=== PATIENT | female | born 1960 | race Caucasian/White ===

== ENCOUNTER → 2016-07-13 | Outpatient (CLI) | payer BC ==
--- NOTE | 2016-07-13 16:43 | MAMMOGRAPHY REPORT ---
BILATERAL DIGITAL SCREENING MAMMOGRAM TOMOSYNTHESIS WITH CAD: 07/13/2016 CLINICAL HISTORY: Routine screening. Patient has no complaints. TECHNIQUE: Breast tomosynthesis in addition to standard 2D mammography was performed. Current study was also evaluated with a Computer Aided Detection (CAD) system. COMPARISON: Comparison is made to exams dated: 06/08/2015 mammogram, 05/26/2014 mammogram, 03/19/2013 mammogram, 02/12/2012 mammogram, 02/08/2011 mammogram, and 05/26/2009 mammogram - [facility]. BREAST COMPOSITION: There are scattered areas of fibroglandular density in both breasts. FINDINGS: No suspicious masses, calcifications, or areas of architectural distortion are noted in e ither breast. There has been no significant interval change compared to prior exams. IMPRESSION: ACR BI-RADS CATEGORY 1: NEGATIVE There is no mammographic evidence of malignancy. A 1 year screening mammogram is recommended. The p atient will receive written notification of the results. Approximately 10% of breast cancers are not detected with mammography. A negative mammographic repor t should not delay biopsy if a clinically suggestive mass is present. Chantel Byrne M.D. ah/:07/13/2016 15:11:07 Linen Grader: Ryanne PADRON(Olaf)(Maria)(BD), [facility] letter sent: Normal 1/2 BI-RADS Code: ACR BI-RADS Category 1: Negative
== END | disposition home or self-care (01) ==
LOC: C.MAMM 13:54
DX: Z12.31 Encounter for screening mammogram for malignant neoplasm of breast (principal)

== ENCOUNTER → 2017-10-03 | Outpatient (CLI) | payer OTHER ==
--- NOTE | 2017-10-03 15:34 | MAMMOGRAPHY REPORT ---
BILATERAL DIGITAL SCREENING MAMMOGRAM TOMOSYNTHESIS WITH CAD: 10/03/2017 CLINICAL HISTORY: Routine screening. Patient has no complaints. TECHNIQUE: Breast tomosynthesis in addition to standard 2D mammography was performed. Current study was also evaluated with a Computer Aided Detection (CAD) system. COMPARISON: Comparison is made to exams dated: 07/13/2016 mammogram, 06/08/2015 mammogram, 05/26/2014 ma mmogram, 03/19/2013 mammogram, 02/12/2012 mammogram, and 02/08/2011 mammogram - [facility]. BREAST COMPOSITION: There are scattered areas of fibroglandular density in both breasts. FINDINGS: No suspicious masses, calcifications, or areas of architectural distortion are noted in ei ther breast. There has been no significant interval change compared to prior exams. IMPRESSION: ACR BI-RADS CATEGORY 1: NEGATIVE There is no mammographic evidence of malignancy. A 1 year screening mammogram is recommended. The pa tient will receive written notification of the results. Approximately 10% of breast cancers are not detected with mammography. A negative mammographic report should not delay biopsy if a clinically suggestive mass is present. Chantel Byrne M.D. ah/:10/03/2017 13:41:41 Hat Block Maker: Heidi PADRON(Olaf)(Maria), [facility] letter sent: Normal 1/2 BI-RADS Code: ACR BI-RADS Category 1: Negative
== END | disposition home or self-care (01) ==
LOC: C.MAMM 11:06
DX: Z12.31 Encounter for screening mammogram for malignant neoplasm of breast (principal)

== ENCOUNTER 2023-07-26 05:14 | Observation (INO) ==
--- NOTE | 2023-06-17 09:21 | PAT Medication Instructions ---
Medication Instructions Date of Service June 17, 2023 Home Medications biotin 1 mg tablet 1 mg PO QAM calcium 600 mg capsule 600 mg PO QAM cholecalciferol (vitamin D3) 25 mcg (1,000 unit) tablet (Vitamin D3) 25 mcg PO QAM diphenhydramine 25 mg-acetaminophen 500 mg tablet (Tylenol PM Extra Strength) 1 tab PO HS PRN ibuprofen 200 mg tablet 200 mg PO Q6H PRN levothyroxine 50 mcg tablet 50 mcg PO QPM naproxen sodium 220 mg tablet (Aleve) 220 mg PO Q12H PRN rosuvastatin 10 mg tablet 10 mg PO QPM sertraline 100 mg tablet 200 mg PO QPM vitamin B complex 1 cap PO QAM ASK your surgeon for instructions ibuprofen 200 mg tablet 200 mg PO Q6H PRN naproxen sodium 220 mg tablet (Aleve) 220 mg PO Q12H PRN STOP taking 2 weeks before surgery (or as soon as possible if surgery is within 2 weeks) biotin 1 mg tablet 1 mg PO QAM DO NOT take the morning of surgery calcium 600 mg capsule 600 mg PO QAM cholecalciferol (vitamin D3) 25 mcg (1,000 unit) tablet (Vitamin D3) 25 mcg PO QAM vitamin B complex 1 cap PO QAM Take evening before surgery diphenhydramine 25 mg-acetaminophen 500 mg tablet (Tylenol PM Extra Strength) 1 tab PO HS PRN(if needed) levothyroxine 50 mcg tablet 50 mcg PO QPM rosuvastatin 10 mg tablet 10 mg PO QPM sertraline 100 mg tablet 200 mg PO QPM Other Notes NOTHING TO EAT OR DRINK AFTER MIDNIGHT. If you have any questions please call us at [phone] or [phone] or [phone] or [phone]
--- NOTE | 2023-06-20 11:05 | Anesthesiology Consultation ---
Date of Service June 20, 2023 Assessment & Plan (1) Encounter for pre-operative examination: Chart Review Chart Review: Acceptable Risk for Surgery and Patient seen in Pre Admission Testing - Patient NOT an ideal OPJ candidate due to functional status (currently 23 hour observation) Per PAT appt on 06/20/23, no recent illness/disease exposures, illness related symptoms, or recent illness/disease positive tests. Will leave to surgeon's discretion if preop Covid testing needed Teaching & Discussion Pre-Anesthesia Teaching/Discussion Notes: Instructed NPO after midnight before s urgery,except medications with 15 cc of water. Medication instructions provided according to the PAT guidelines. History Surgery Operation Date: 07/26/23 11:00 Proposed Procedures p Right Total Hip Arthroplasty Anterior - Raza Florian, Height/Weight Height: 5 ft 7.5 in Weight: 116 kg Allergies Allergy/AdvReac Type Severity Reaction Status Date / Time Sulfa (Sulfonamide Allergy Hives Verified 06/14/23 13:49 Antibiotics) metformin Allergy Mild Hives Uncoded 06/14/23 13:49 Medications Home Medications Medication Instructions Recorded Confirmed Last Taken biotin 1 mg tablet 1 mg PO QAM 06/14/23 06/14/23 Unknown calcium 600 mg capsule 600 mg PO QAM 06/14/23 06/14/23 Unknown cholecalciferol (vitamin D3) 25 25 mcg PO QAM 06/14/23 06/14/23 Unknown mcg (1,000 unit) tablet (Vitamin D3) diphenhydramine 25 1 tab PO HS PRN Sleep 06/14/23 06/14/23 Unknown mg-acetaminophen 500 mg tablet (Tylenol PM Extra Strength) ibuprofen 200 mg tablet 200 mg PO Q6H PRN Pain 06/14/23 06/14/23 Unknown levothyroxine 50 mcg tablet 50 mcg PO QPM 06/14/23 06/14/23 Unknown naproxen sodium 220 mg tablet 220 mg PO Q12H PRN Pain 06/14/23 06/14/23 Unknown (Aleve) rosuvastatin 10 mg tablet 10 mg PO QPM 06/14/23 06/14/23 Unknown sertraline 100 mg tablet 200 mg PO QPM 06/14/23 06/14/23 Unknown vitamin B complex 1 cap PO QAM 06/14/23 06/14/23 Unknown Past Medical History Medical History Anxiety and depression History of TMJ disorder Remote history No clicking or locking Hyperlipidemia Hypothyroidism Lichen planus Obstructive sleep apnea CPAP Osteoarthritis Prediabetes Exercise / Class Metabolic Activity III < 4 Walking/Shop/Light housework (no chest pain or SOB with flat surface am bulation- uses cane for ambulation ) Past Family History Family History Aunt Breast cancer Mother Colorectal cancer Liver mass Father , age 77 Myocardial infarction Arrhythmia Son Multiple sclerosis Denies family history of Ovarian cancer Prostate cancer Uterine cancer Past Surgical History Surgical History History of colonoscopy History of tonsillectomy S/P dilation and curettage D&E S/P excision of lipoma L thigh Past Anesthesia History No Hx of Anesthesia Complications and No Family Hx of Anesthesia Complications History of PONV No Hx of PONV and Hx of Motion Sickness Social History Smoking Status: Former smoker Do You Dip or Chew Tobacco: No Smoking End Date: 2020 Hx Alcohol Use: Yes Alcohol type: wine alcohol intake frequency: holidays/special occasions only Hx Substance Use: No substance use type: does not use Review of Systems Patient denies chest pain, shortness of breath, dyspnea on exertion, reflux, cough, wheezing, palpitations. No hx of seizures, stroke, [place]. No hx of blood clots or blood transfusions Physical Exam Vital Signs VITALS BP 122/62 P 77 TEMP 98.0 SP02 95% RESP Constitutional no acute distress ENMT Mouth: no TMJ clicking Thyromental Distance: > or= 3.5 Finger Breadths (3.5) Mallampati Class: III Missing molars and side teeth [place] to molars Neck + limited neck extension Respiratory normal respiratory effort; no respiratory distress Auscultation: lungs clear to auscultation bilaterally; no wheezes Cardiovascular Rate/Rhythm: regular rate and regular rhythm Heart Sounds: no murmur Vessels: no carotid bruit Musculoskeletal Spine: no pain with cervical ROM Extremities: extremities normal to inspection Psychiatric Orientation: alert Lab Results Anesthesia Preop Results Results Anesthesia Widget: WBC 4.12 K/ul (4.8-10.8) L 06/20/23 Hgb 12.9 g/dl (12.0-16.0) 06/20/23 Hct 39.2 % (37.0-47.0) 06/20/23 Plt 165 K/uL (130-400) 06/20/23 Na 141 mmol/L (136-145) 06/20/23 K 4.2 mmol/L (3.5-5.1) 06/20/23 Cl 107 mmol/L (98-107) 06/20/23 CO2 29 mmol/L (21-32) 06/20/23 BUN 15 mg/dl (6-23) 06/20/23 Creat 0.88 mg/dl (0.6-1.2) 06/20/23 Glucose Level 93 mg/dl (70-99(Fasting)) 06/20/23 PT 10.6 Seconds (9.0-12.0) 06/20/23 PTT 27 Seconds (21-31) 06/20/23 INR 1.0 (0.9-1.1) 06/20/23 HA1c 5.9 % (4.5-5.6) H 06/20/23 Blood Type A Negative 06/20/23 Antibody Screen NEGATIVE 06/20/23 Testing Electrocardiogram Date: 06/20/23 Findings: + NSR @ (74bpm) Normal EKG per cardio Chest X-Ray Date: 06/20/23 Findings: + NAD
--- NOTE | 2023-07-24 07:58 | History & Physical Report ---
Date of Service July 24, 2023 Assessment & Plan (1) Osteoarthritis of right hip: We will proceed with a right anterior total of arthroplasty. Postoperatively she will be started on aspirin for DVT prophylaxis and kept overnight in the hospital for postop medical management. She plans to use energy physical t herapy upon discharge. History of Present Illness Chief Complaint: Osteoarthritis of the right hip. Primary Care Provider: Padmini Whitlock DO Stephania is a pleasant 63-year-old female who has been dealing with chronic increasing right hip and groin pain. X-rays and clinical examination have been diagnostic for advanced arthritis of the right hip. She has been failing conservative treatment including injections. She has elected proceed with a right anterior total of arthroplasty. Allergies Allergy/AdvReac Type Severity Reaction Status Date / Time Sulfa (Sulfonamide Allergy Hives Verified 06/14/23 13:49 Antibiotics) metformin Allergy Mild Hives Uncoded 06/14/23 13:49 Home Medications Medication Instructions Recorded Confirmed Type biotin 1 mg tablet 1 mg PO QAM 06/14/23 06/14/23 History calcium 600 mg capsule 600 mg PO QAM 06/14/23 06/14/23 History cholecalciferol (vitamin D3) 25 25 mcg PO QAM 06/14/23 06/14/23 History mcg (1,000 unit) tablet (Vitamin D3) diphenhydramine 25 1 tab PO HS PRN Sleep 06/14/23 06/14/23 History mg-acetaminophen 500 mg tablet (Tylenol PM Extra Strength) ibuprofen 200 mg tablet 200 mg PO Q6H PRN Pain 06/14/23 06/14/23 History naproxen sodium 220 mg tablet 220 mg PO Q12H PRN Pain 06/14/23 06/14/23 History (Aleve) rosuvastatin 10 mg tablet 10 mg PO QPM 06/14/23 06/14/23 History sertraline 100 mg tablet 200 mg PO QPM 06/14/23 06/14/23 History vitamin B complex 1 cap PO QAM 06/14/23 06/14/23 History levothyroxine 50 mcg tablet 50 mcg PO QPM #90 tabs 07/08/23 Rx Past Med/Surg History Medical History Osteoarthritis History of TMJ disorder Remote history No clicking or locking Prediabetes Obstructive sleep apnea CPAP Hypothyroidism Lichen planus Anxiety and depression Hyperlipidemia Surgical History History of tonsillectomy History of colonoscopy S/P excision of lipoma L thigh S/P dilation and curettage D&E Family History Aunt Breast cancer Mother Colorectal cancer Liver mass Father , age 77 Myocardial infarction Arrhythmia Son Multiple sclerosis Denies family history of Ovarian cancer Prostate cancer Uterine cancer Social History Smoking Status: Former smoker Tobacco Type: Cigarettes Age Started Using Tobacco: 26; Age Quit Using Tobacco: 56; packs per day: 0.25; Smoking End Date: 2020; Second Hand Exposure: Yes; Do You Dip or Chew Tobacco: No; Tobacco Cessation Education Requested by Patient: No Hx Alcohol Use: Yes Alcohol type: wine Hx Substance Use: No Preferred Language: Yoruba Communication Ability: Effective Visual Impairment: No Limitations Hearing Ability: Normal Economist Research Assistant Required: No Beliefs That Will Affect Care: None marital status: Current Living Situation: Spouse current occupational status: retired current occupation: [employer] Feels Safe at Home: Yes Safety Concerns: Feels Safe At This Time Diet: regular Diet Comment: regular caffeine: Yes during the past year weight has: remained stable Dental Care, Regularly: Yes Physical Activity Frequency: 3-4 Times per Week Seatbelt Use: always Sunscreen Use: Yes Assistive Devices: Cane and Glasses Review of Systems All systems reviewed & are unremarkable except as noted in HPI & below. Physical Exam On physical examination of the right hip, she has decreased range of motion. She has pain with forced internal and external rotation. All of her pain is located in her groin.. Constitutional WD/WN, vitals as above Eyes PERRL, conjunctivae normal, anicteric sclerae ENMT external ear and nose normal, oropharynx normal Neck trachea midline, no thyromegaly Respiratory normal respiratory effort Cardiovascular RRR, no murmur, no edema Gastrointestinal (Abdomen) normal bowel sounds, soft, nontender, no hepatosplenomegaly Psychiatric A+Ox3, euthymic affect Results & Data Results & Data Laboratory Results . Diagnostic Findings X-rays of the right hip show advanced osteoarthritis with joint space narrowing, osteophyte formation, and [id number] articulation. PG Care Time/CCT Total # of Minutes Spent Total Time Spent with Patient: Total time spent is greater than 50% in coordination of care (as documented) at patient's floor/unit and/or counseling patient: Coding Level of Care Code None Diagnoses Osteoarthritis of right hip M16.11
[2023-07-26] MEDS: LR 60ML/HR IV SCH (06:03)
[2023-07-26] MEDS: LR 500ML BOLUS, THEN 15ML/HR IV SCH (06:03)
[2023-07-26] MEDS: ACETAMINOPHEN 500 MG TAB PO SCH ×2 (06:03→13:17)
[2023-07-26] MEDS: GABAPENTIN 600 MG DOSE PO SCH (06:04)
[2023-07-26] MEDS: dexAMETHasone**PF** 10 MG/ML VIAL IV SCH (06:04)
[2023-07-26] MEDS: FAMOTIDINE 20 MG TAB PO SCH (06:04)
[2023-07-26] MEDS ORDERED: BUPIVACAINE 0.5 % 5 MG/1 ML PF 10ML VIAL ONE (06:18)
--- NOTE | 2023-07-26 06:30 | History & Physical Bridge Note ---
Date of Service July 26, 2023 History & Physical Bridge Note I have examined the patient, reviewed the History & Physical and in the interval since the performance of the History & Physical I have noted the following changes of clinical significance: no changes noted
[2023-07-26] MEDS ORDERED: MIDAZOLAM HCL 1 MG/ML 2ML VIAL ONE (06:41)
[2023-07-26] MEDS ORDERED: PROPOFOL IV EMULSION 10 MG/ML 20 ML VIAL IV ONE (06:41)
[2023-07-26] MEDS: TRANEXAMIC ACID 1,000 MG **IV Pre-op IV SCH (06:50)
--- NOTE | 2023-07-26 06:59 | Anesthesiology Consultation ---
Date of Service July 26, 2023 Assessment & Plan Consults Requested medical & cardiac Pulmonary History Surgery Operation Date: 07/26/23 07:00 Proposed Procedures p Right Total Hip Arthroplasty Diane - Raza Florian DO Height/Weight Height: 5 ft 7.5 in Weight: 115.1 kg Allergies Allergy/AdvReac Type Severity Reaction Status Date / Time metformin Allergy Mild Hives Verified 07/26/23 05:41 Sulfa (Sulfonamide Allergy Hives Verified 07/26/23 05:41 Antibiotics) Medications Home Medications Medication Instructions Recorded Confirmed Last Taken biotin 1 mg tablet 1 mg PO QAM 06/14/23 07/26/23 07/19/23 calcium 600 mg capsule 600 mg PO QAM 06/14/23 07/26/23 07/19/23 cholecalciferol (vitamin D3) 25 25 mcg PO QAM 06/14/23 07/26/23 07/19/23 mcg (1,000 unit) tablet (Vitamin D3) diphenhydramine 25 1 tab PO HS PRN Sleep 06/14/23 07/26/23 Unknown mg-acetaminophen 500 mg tablet (Tylenol PM Extra Strength) ibuprofen 200 mg tablet 200 mg PO Q6H PRN Pain 06/14/23 07/26/23 Unknown naproxen sodium 220 mg tablet 220 mg PO Q12H PRN Pain 06/14/23 07/26/23 Unknown (Aleve) rosuvastatin 10 mg tablet 10 mg PO QPM 06/14/23 07/26/23 07/25/23 17:00 sertraline 100 mg tablet 200 mg PO QPM 06/14/23 07/26/23 07/25/23 17:00 vitamin B complex 1 cap PO QAM 06/14/23 07/26/23 07/19/23 levothyroxine 50 mcg tablet 50 mcg PO QPM #90 tabs 07/08/23 07/26/23 07/25/23 17:00 Active Medications Generic Name Dose Route Start Last Admin Trade Name Freq PRN Reason Stop Dose Admin Acetaminophen 1,000 mg 07/26/23 06:00 07/26/23 06:03 Acetaminophen 500 Mg Tab PO 07/26/23 18:00 1,000 mg PREOP MARCIE Administration Dexamethasone Sodium Phosphate 10 mg 07/26/23 06:00 07/26/23 06:04 DexamethasonePf 10 Mg/Ml Vial IV 07/26/23 18:00 10 mg PREOP MARCIE Administration Famotidine 20 mg 07/26/23 06:00 07/26/23 06:04 Famotidine 20 Mg Tab PO 07/26/23 18:00 20 mg PREOP MARCIE Administration Gabapentin 600 mg 07/26/23 06:00 07/26/23 06:04 Gabapentin 600 Mg Dose PO 07/26/23 18:00 600 mg PREOP MARCIE Administration Lactated Ringer's 1,000 mls @ 15 mls/hr 07/26/23 06:00 07/26/23 06:03 Lr IV 07/26/23 18:00 15 mls/hr .Q24H MARCIE Administration Lactated Ringer's 1,000 mls @ 60 mls/hr 07/26/23 06:00 07/26/23 06:03 Lr IV 07/26/23 22:39 Not Given .[id number] MARCIE Tranexamic Acid 1,000 mg in 100 mls @ 600 mls/hr 07/26/23 06:00 07/26/23 06:50 Tranexamic Acid / 0.7% Nacl IV 07/26/23 18:00 600 mls/hr TODAY@0600 MARCIE Administration NPO Date Last Intake of Fluids: 07/25/23 Time Last Intake of Fluids: 21:30 Date Last Intake of Solids: 07/25/23 Time Last Intake of Solids: 21:30 Past Medical History Medical History Osteoarthritis History of TMJ disorder Remote history No clicking or locking Prediabetes Obstructive sleep apnea CPAP Hypothyroidism Lichen planus Anxiety and depression Hyperlipidemia Past Family History Family History Aunt Breast cancer Mother Colorectal cancer Liver mass Father , age 77 Myocardial infarction Arrhythmia Son Multiple sclerosis Denies family history of Ovarian cancer Prostate cancer Uterine cancer Past Surgical History Surgical History History of tonsillectomy History of colonoscopy S/P excision of lipoma L thigh S/P dilation and curettage D&E Social History Smoking Status: Former smoker Do You Dip or Chew Tobacco: No Smoking End Date: 2021 Hx Alcohol Use: Yes Alcohol type: wine alcohol intake frequency: holidays/special occasions only Hx Substance Use: No substance use type: does not use Physical Exam Vital Signs Last Vital Signs Temp 36.6 C 07/26/23 05:44 Pulse 71 07/26/23 05:44 Resp 18 07/26/23 05:44 BP 162/87 H 07/26/23 05:44 Pulse Ox 95 07/26/23 05:44 O2 Del Method Room Air 07/26/23 05:44 Testing Electrocardiogram Date: 06/20/23 Findings: + NSR @ (74bpm) Normal EKG per cardio Chest X-Ray Date: 06/20/23 Findings: + NAD
[2023-07-26] MEDS ORDERED: HYDROmorphone INJ 2 MG/ML SYR/VIAL IV PRN (07:00)
[2023-07-26] MEDS ORDERED: PROMETHAZINE HCL 6.25 MG in SODIUM CHLORIDE 0.9% 50 ML IV PRN (07:00)
[2023-07-26] MEDS ORDERED: ATROPINE SULFATE 0.1 MG/ML 10ML SYR IV PRN (07:00)
[2023-07-26] MEDS ORDERED: ePHEDrine sulfate 50 MG/ML AMP IV PRN (07:00)
[2023-07-26] MEDS: ceFAZolin 2000MG 2,000 MG/15 ML SYR IV SCH ×2 (07:07→15:30)
[2023-07-26] MEDS: ROPIV 0.5% 246mg, Ketorolac 30mg, EPINEPHrine 0.5mg in NSS INFIL SCH (07:29)
[2023-07-26] MEDS: ORTHO JOINT ANESTHETIC ONE (07:29)
--- NOTE | 2023-07-26 08:14 | Operative Report ---
PG Post Operative Report Pre & Post Diagnosis Operation Date: 07/26/23 07:00 Pre-Op Diagnosis: DJD Hip Right Post-Op Diagnosis: DJD Hip Right I identified the patient and participated in the time-out.: Yes Procedure Operation Date: 07/26/23 07:00 Actual Procedures p Right Total Hip Arthroplasty Anterior(Right) - Raza Florian DO Surgeon Raza Florian DO Automation Technologist Raza Sharma PA-C Estimated Blood Loss 250 Findings Consistent with Post-Op Diagnosis Specimens Right femoral head Description of Procedure Implants used I used a ZimmerBiomet total hip arthroplasty system with a size 1 standard offset Avenir Complete stem, a 54 mm G7 cup with a 25mm screw, an E1 polyethylene liner, a 40 mm ceramic head with a 0 neck. Stephania arrived at the hospital for the above procedure. She was seen in the preoperative holding area and the operative extremity was identified and signed. She was given a spinal anesthetic, a preoperative antibiotic, and TXA. She was then taken back to the operating room and laid on the table in the supine position. She was given basic sedation. The operative leg was secured to a Puristst leg positioner. The hip was then prepped and draped in sterile fashion. A timeout was done and the patient and the operative extremity was properly identified. An anterior approach was used. Dissection was taken down through the fascia and the tensor muscle belly was retracted laterally and the rectus was retracted medially. The circumflex vessels were identified and ligated. The capsule was then incised and tagged for later repair. The femoral neck was then cut and the femoral head was removed. The acetabulum was exposed. Time was spent doing a complete circumferential labral release. Sequential reaming of the acetabulum up to a size 53 reamer was done. Final reamings were done under fluoroscopy to ensure appropriate version. A Biomet 54 mm G7 cup was then impacted into place. A single 25 mm screw was placed. The E1 polyethylene liner was then snapped into place. Surrounding soft tissues were then injected with 100 cc of an orthopedic pain control cocktail. The proximal femur was then exposed. Sequential broaching up to a size 1 broach was done. Off that broach a size 40 head with a 0 neck was trialed. The hip was reduced and fluoroscopic images showed anatomic alignment of the implants in acceptable length. The broach was removed. The final size standard offset Avenir Complete stem was then impacted into place. A ceramic 40 mm head with a 0 neck was then impacted onto the stem and the hip was reduced. Final fluoroscopic images showed anatomic alignment of the hip. The capsule was then closed with #1 Vicryl suture. A dilute betadyne lavage was then done for 3 minutes. The joint was then irrigated with normal saline solution. The fascia was closed with #1 PDS suture. Skin was closed with 2-0 Vicryl, mal, and a Silverlon dressing. She was then transferred to a hospital bed and taken to the post anesthesia care unit in stable condition. She tolerated the procedure well. Raza Sharma PA-C, was present for the entire procedure. He was critical for patient positioning, prepping, draping, retraction exposure, wound closure and application of sterile dressing. I attest to the content of the Intraoperative Record and any orders documented therein. Any exceptions are noted below.
--- NOTE | 2023-07-26 08:15 | Fluoroscopy Report ---
INTRAOPERATIVE RADIOGRAPH CLINICAL HISTORY: Right hip arthroplasty. Fluoro time: 19 seconds Ka,r: 2.42 mGy FINDINGS: A single spot fluoroscopic image of the right hip is obtained. Correlation is made to radio graphs dated 03/06/2023. A bipolar right hip arthroplasty is in near anatomic alignment. A single cor tical lag screw is seen transfixing the acetabular cup. The hardware appears intact. There is no evid ence of acute fracture on this fluoroscopic view. IMPRESSION: Intraoperative image from a right hip arthroplasty procedure as above. Electronically signed by: Anam Che M.D. 07/26/2023 8:14 AM
[2023-07-26] MEDS: TRANEXAMIC ACID 1,000 MG **IV Intra-op IV SCH (08:17)
--- NOTE | 2023-07-26 08:52 | XRay Report ---
SINGLE VIEW PELVIS; SINGLE VIEW RIGHT HIP CLINICAL HISTORY: Postoperative examination. FINDINGS: An AP portable view of the hips and pelvis with a crosstable lateral portable view of the r ight hip are compared to study dated 03/06/2023. A bipolar right hip arthroplasty is in near-anatomic alignment. A single cortical lag screw transfixes the acetabular cup. No acute fracture is identifie d. There are expected postoperative changes overlying the right hip including skin clips, subcutaneou s gas, and soft tissue swelling. Mild to moderate arthritic change is noted in the left hip. IMPRESSION: Expected postoperative findings status post right hip arthroplasty. No acute fracture is seen. ACT 112: Negative or not required by law. Electronically signed by: Anam Che M.D. 07/26/2023 8:51 AM
[2023-07-26] MEDS ORDERED: MAGNESIUM HYDROXIDE SUSP 30 ML UDC PO PRN (11:13)
[2023-07-26] MEDS ORDERED: HYDROmorphone INJ 0.5 MG/0.5 ML SYR IV PRN (11:13)
[2023-07-26] MEDS ORDERED: METOCLOPRAMIDE HCL INJ 5 MG/ML 2 ML VIAL IV PRN (11:13)
[2023-07-26] MEDS ORDERED: NALOXONE HCL 0.4 MG/1 ML VIAL/CARP IV PRN (11:13)
[2023-07-26] MEDS ORDERED: bisacodyL 10 MG SUPP PR PRN (11:13)
[2023-07-26] MEDS ORDERED: ONDANSETRON INJ 2 MG/ML 2 ML VIAL IV PRN (11:13)
[2023-07-26] MEDS: SODIUM CHLORIDE 0.9% 1,000 ML IV SCH (11:34)
[2023-07-26] MEDS: oxyCODONE HCL IR 5 MG TAB (IMMEDIATE RELEASE) PO PRN (13:15)
[2023-07-26] MEDS: ASPIRIN 81 MG ECTAB PO SCH (13:16)
[2023-07-26] MEDS: MULTIVITAMIN TAB PO SCH (13:16)
[2023-07-26] MEDS: DOCUSATE SODIUM 100 MG CAP PO SCH (13:16)
[2023-07-26] MEDS: KETOROLAC 30 MG/ML VIAL IV SCH (13:16)
--- NOTE | 2023-07-26 13:17 | Anesthesiology Progress Note ---
Date of Service July 26, 2023 Anesthesia Post Procedure Vital Signs Vital Signs: Temp Pulse Pulse Resp BP Pulse Ox O2 Del Method 07/26/23 13:06 77 16 157/77 H 97 Room Air 07/26/23 12:12 68 16 115/70 97 Room Air 07/26/23 11:40 36.2 C L 60 16 116/70 94 Room Air 07/26/23 11:13 36.3 C L 60 16 116/79 96 Room Air 07/26/23 10:55 56 L 15 119/61 97 Room Air 07/26/23 10:45 54 L 18 124/61 98 Room Air 07/26/23 10:35 57 L 15 119/56 L 99 Room Air 07/26/23 10:25 58 L 12 134/72 98 Room Air 07/26/23 10:15 52 L 18 135/59 L 96 Room Air 07/26/23 10:05 50 L 15 133/67 99 Room Air 07/26/23 09:55 49 L 15 129/76 97 Room Air 07/26/23 09:45 48 L 13 125/67 95 Room Air 07/26/23 09:35 48 L 12 121/62 95 Room Air 07/26/23 09:25 51 L 14 134/75 96 Room Air 07/26/23 09:15 52 L 18 141/71 H 97 Room Air 07/26/23 09:05 48 L 12 111/65 95 Room Air 07/26/23 08:55 48 L 17 118/60 98 Room Air 07/26/23 08:45 56 L 12 115/68 98 Room Air 07/26/23 08:36 36.0 C L 60 14 101/69 94 Room Air 07/26/23 05:44 36.6 C 71 18 162/87 H 95 Room Air Transfer of Care Handoff Completed per policy Notes Mental Status: alert / awake / arousable and participated in evaluation Nausea / Vomiting: adequately controlled Pain: adequately controlled Airway Patency, RR, SpO2: stable & adequate BP & HR: stable & adequate Hydration State: stable & adequate Neuraxial Anesthesia: was administered and sensory block is resolving Anesthetic Complications: no major complications apparent and Pt Satisfied with anesthetic care
[2023-07-26] MEDS: LEVOTHYROXINE SODIUM 50 MCG TABLET PO SCH (20:52)
[2023-07-26] MEDS: SERTRALINE HCL 100 MG TABLET PO SCH (20:52)
[2023-07-26] MEDS: ROSUVASTATIN CALCIUM 10 MG TAB PO SCH (20:52)
[2023-07-26] MEDS: SENNA 8.6 MG TAB PO SCH (20:52)
[2023-07-27] MEDS: dexAMETHasone 4 MG TAB PO SCH (08:38)
--- NOTE | 2023-07-27 09:29 | Orthopedic Progress Note ---
Date of Service July 27, 2023 Assessment & Plan (1) Status post right hip replacement: Overall she is doing very well. She is not having much pain in the right hip. She will be seen by physical therapy today for ambulation and range of motion exercises. She can be discharged home later today. She will follow-up with orthopedics in 2 weeks. Eve Cat was seen and examined at bedside this morning. Overall she is doing very well. She is not having much pain in the right hip. She has been up and ambulate to the bathroom. She has no complaints.. Review of Systems All systems reviewed & are unremarkable except as noted in HPI & below. Physical Exam On physical examination of the right hip, the dressing is clean and dry. Her leg is out full extension. She is active dorsiflexion and plantarflexion of her right ankle.. Results & Data Results & Data Laboratory Results . Diagnostic Findings Postoperative x-rays of the right hip show the prosthesis to be in anatomic alignment without any evidence of fracture, dislocation, or loosening.. PG Care Time/CCT Total # of Minutes Spent Total Time Spent with Patient: Total time spent is greater than 50% in coordination of care (as documented) at patient's floor/unit and/or counseling patient: Coding Level of Care Code 16066 Post Operative Follow-Up Diagnoses Status post right hip replacement Z96.641
--- NOTE | 2023-07-27 09:30 | Discharge Summary ---
Date of Service July 27, 2023 Admission HPI (Per Admitting) Stephania is a pleasant 63-year-old female who has been dealing with chronic increasing right hip and groin pain. X-rays and clinical examination have been diagnostic for advanced arthritis of the right hip. She has been failing conservative treatment including injections. She has elected proceed with a right anterior total of arthroplasty. Admission Exam (Per Admitting) On physical examination of the right hip, she has decreased range of motion. She has pain with forced internal and external rotation. All of her pain is located in her groin.. Principal Diagnosis Same as "Discharge Diagnosis" noted below under Discharge Instructions. Discharge Exam On physical examination of the right hip, the dressing is clean and dry. Her leg is out full extension. She is active dorsiflexion and plantarflexion of her right ankle.. Discharge Data Procedures Performed Operation Date: 07/26/23 07:00 Actual Procedures p Right Total Hip Arthroplasty Anterior(Right) - Raza Florian DO Ordered Studies 07/26/23 07:00 FL hip RT 1V Routine Hospital Course (1) Status post right hip replacement: On July 26, [address] [facility] and underwent a right anterior hip replacement without complication. She had a spinal anesthetic. Postoperatively she was started on aspirin for DVT prophylaxis and transferred to the general orthopedic floors. Her hospital course was uneventful. On postop day #1, her vital signs were stable and her pain was well-controlled. She was able to participate well with physical therapy doing ambulation and range of motion exercises. She was then discharged home. She will follow-up with orthopedics in 2 weeks. PG Care Time/CCT Total # of Minutes Spent Total Time Spent with Patient: Total time spent is greater than 50% in coordination of care (as documented) at patient's floor/unit and/or counseling patient: Discharge Plan Discharge Items Patient Disposition: Home - Self-Care Reason For Visit: DJD Hip Right Discharge Diagnosis: Right hip replacement Activity: Per Instructions section Non-emergency contact: Surgeon Call non-emergency contact if: your wound has increased redness and your wound has increased drainage Follow-up/Referrals: Padmini Whitlock DO [Primary Care Provider] - Diet: Regular Addtl Attending Provider Instructions: Activity and Therapy Recommendations: * If you are using [facility] then therapy will be provided at your home until they feel you have accomplished all of your goals. * If you are using [facility] then Physical Therapy will be provided until they feel you are ready to start Outpatient Physical Therapy. * If you are not using home therapy then Outpatient Physical Therapy should start about 3-5 days from your day of surgery. Therapy will last about 6-10 weeks * You were shown a series of exercises in the hospital. Do these exercises three times each day including the exercises you were shown in physical therapy. * Get up and walk several times each day.~ For the first four weeks, try not to stand or walk for more than one hour at a time. If you do stand or walk for more than one hour, you will not hurt anything, but your leg will likely swell.~~ * As you feel comfortable, you may change from the walker or crutches to a cane and~then to independent walking. Medications: * Narcotic You will likely be sent home from the hospital with a prescription for the narcotic pain medication that worked best throughout your stay. * Cefadroxil -take the antibiotic twice a day for 10 days to help with infection. * Aspirin Most patients will be required to take Aspirin 81mg twice a day for 6 weeks after surgery. This is obtained [id number] and a prescription is not necessary. * Other medications may be prescribed for specific circumstances. If you have any questions, please call the office at . * Resume previous home medications unless otherwise instructed TEDs/Elastic Stockings: The white elastic stockings help limit swelling and prevent blood clots from forming in your legs. The more you wear them, the more they work. Wear them for six weeks. Dressing Care: Leave the Silverlon dressing in place for 7 days. After 7 days you may remove the dressing. If the incision is not draining then you may leave the mal open to air. If there is a little bit of drainage or if the mal are getting stuck on your clothing then cover the incision with a dry dressing. The mal will be removed at your 2 week follow-up appointment. Showering: You may shower with the Silverlon dressing in place. Do not let the shower spray hit the dressing directly. Pat the Silverlon dressing dry. If the dressing becomes wet underneath, then simply remove the dressing. Keep the incision dry until you are 7 days out from the day of surgery. After 7 days you may remove the Silverlon dressing and shower with the mal exposed. Let soapy water run over the mal and pat them dry. Do not scrub or soak the incision. Things To Watch For: * Drainage from the incision site that occurs more than one week after your surgery. * Increased redness at the incision site. * Fever above 102 degrees Fahrenheit. * Unusual chest pain or shortness of breath. * Call [facility] at with any of the above problems Follow-Up Visit: Follow-up with Dr. Florian's PA (Raza Sharma) 2-3 weeks after your day of surgery. He will remove your mal and answer any questions. If you have any additional questions or concerns, Dr Florian is usually in the office at the same time and will be available An appointment was probably scheduled when you signed-up for surgery in the office. If you have any questions call Office Instructions: More detailed instructions as well as Frequently Asked Questions were provided in a folder by our office when you signed-up for surgery. Please review these instructions when you get home. If you have any further questions or concerns, please feel free to call the office at [phone] Pending Studies at Discharge: No Stand-Alone Forms: [facility], Smoking Cessation Medications and DC Order Prescriptions: New oxycodone 5 mg Tablet 5 mg PO Q4H PRN (Reason: pain) Qty: 30 0RF cefadroxil 500 mg capsule 500 mg PO BID 10 Days Qty: 20 0RF aspirin 81 mg Tablet,Delayed Release (Dr/Ec) 81 mg PO BID 42 Days Qty: 0 0RF Continued levothyroxine 50 mcg tablet 50 mcg PO QPM Qty: 90 2RF calcium 600 mg Capsule 600 mg PO QAM naproxen sodium [Aleve] 220 mg Tablet 220 mg PO Q12H PRN (Reason: Pain) ibuprofen 200 mg Tablet 200 mg PO Q6H PRN (Reason: Pain) diphenhydramine-acetaminophen [Tylenol PM Extra Strength] 25-500 mg Tablet 1 tab PO HS PRN (Reason: Sleep) vitamin B complex Capsule 1 cap PO QAM biotin 1 mg Tablet 1 mg PO QAM cholecalciferol (vitamin D3) [Vitamin D3] 25 mcg (1,000 unit) Tablet 25 mcg PO QAM sertraline 100 mg tablet 200 mg PO QPM rosuvastatin 10 mg tablet 10 mg PO QPM Discharge Orders: Discharge Order (Routine); Ordered 07/27/23 Ordered By: Raza Florian Admission Data Admit Date/Time: 07/26/23 08:36 Attending Provider: Raza Florian Admit Provider: Raza Florian Primary Care Provider: Padmini Whitlock
== END 2023-07-27 12:49 | disposition home or self-care (01) ==
LOC: 3E 05:14 → ASU 05:14